=== PATIENT | female | born 1940 | race Caucasian/White ===

== ENCOUNTER 2018-06-08 11:17 | Emergency (ER) | payer MEDICARE, OTHER ==
[~2018-06-08] VITALS: Ht 157.5 cm; Wt 47.0 kg
[2018-06-08 11:51] VITALS: BP 138/81
== END 2018-06-08 13:48 | disposition home or self-care (01) ==
LOC: ER 11:17
DX: S00.03XA Contusion of scalp, initial encounter (principal); S00.12XA Contusion of left eyelid and periocular area, initial encounter; S00.11XA Contusion of right eyelid and periocular area, initial encounter; S00.83XA Contusion of other part of head, initial encounter; S00.33XA Contusion of nose, initial encounter; Z88.0 Allergy status to penicillin; Z88.8 Allergy status to other drugs, medicaments and biological substances; W18.39XA Other fall on same level, initial encounter; Y93.01 Activity, walking, marching and hiking; Y92.89 Other specified places as the place of occurrence of the external cause; Y99.8 Other external cause status
CPT/HCPCS: 70450; 70486; 99284

== ENCOUNTER 2018-12-28 05:49 | Inpatient (IN) | payer MEDICARE, BC ==
[2018-12-24 15:50] LABS: CLARITY,URINE CLOUDY (Clear); COLOR,URINE YELLOW (Yellow); GLUCOSE, URINE NEGATIVE (Neg); KETONES,URINE NEGATIVE (Neg); LEUKOCYTE ESTERASE ,URINE SMALL (Neg); NITRITES, URINE NEGATIVE (Neg); OCCULT BLOOD,URINE SMALL (Neg); PH,URINE 5.5 (4.8-8.0); PROTEIN,URINE NEGATIVE (Neg); UROBILINOGEN,URINE 0.2 E.U/dL (0.2-1.0)
[2018-12-24 15:53] LABS: BASOPHILS # (AUTO) 0.1 X10'3 (0-0.2); BASOPHILS % (AUTO) 0.9 % (0-1); EOSINOPHILS # (AUTO) 0.3 X10'3 (0-0.9); EOSINOPHILS % (AUTO) 2.7 % (0-6); LYMPHOCYTES # (AUTO) 2.3 X10'3 (1.1-4.8); LYMPHOCYTES % (AUTO) 23.2 % (21-51); MEAN CORPUSCULAR HEMOGLOBIN 32.6 PG (27.0-31.0); MEAN CORPUSCULAR HGB CONC 35.1 g/dL (33.0-36.5); MONOCYTES # (AUTO) 0.6 X10'3 (0-0.9); MONOCYTES % (AUTO) 6.4 % (2-12); NEUTROPHILS # (AUTO) 6.7 X10'3 (1.8-7.7); NEUTROPHILS % (AUTO) 66.8 % (42-75); PRE OP HEMATOCRIT 41.8 % (35.0-45.0); PRE OP HEMOGLOBIN 14.7 g/dL (12.0-16.0); PRE OP PLATELET COUNT 215 X10'3 (140-440); RED BLOOD COUNT 4.49 X10'6 (4.20-5.60); RED CELL DISTRIBUTION WIDTH 12.7 % (11.5-14.5)
[2018-12-24 16:03] LABS: PRE OP PROTIME 10.3 SECONDS (9.0-12.0)
[2018-12-24 16:08] LABS: UA COLLECTION TYPE CLN CATCH MIDSTREAM
[2018-12-24 16:10] LABS: ALBUMIN 3.4 G/DL (3.4-5.0); ALKALINE PHOSPHATASE 103 IU/L (46-116); BLOOD UREA NITROGEN 19 MG/DL (7-18); BUN/CREATININE RATIO 29.7 (6.6-38.0); CALCIUM 8.4 MG/DL (8.5-10.1); CHLORIDE 109 MMOL/L (99-107); CREATININE 0.64 MG/DL (0.40-0.90); PRE OP ALT 25 U/L (30-65); PRE OP ANION GAP 8 (8-16); PRE OP AST 18 U/L (10-37); PRE OP BILIRUB, TOTAL 0.7 MG/DL (0.0-1.0); PRE OP GLUCOSE 84 MG/DL (70-104); PRE OP POTASSIUM 3.9 MMOL/L (3.4-5.1); PRE OP SODIUM 142 MMOL/L (135-145); TOTAL CARBON DIOXIDE 25.2 MMOL/L (24-32); TOTAL PROTEIN 6.7 G/DL (6.4-8.2); eGFR 90 ML/MIN
[2018-12-24 16:20] LABS: SQUAMOUS EPITHELIAL CELL,UR MANY /LPF (FEW)
[2018-12-24 16:22] LABS: BACTERIA,URINE 1+ /HPF (Neg); WBC,URINE 0-4 /HPF (0-4)
[2018-12-24 16:24] LABS: MUCUS STRANDS NONE SEEN /LPF (Neg)
[2018-12-24 16:26] LABS: RBC,URINE 0-2 /HPF (0-2)
[2018-12-24 16:28] LABS: TRANSITIONAL EPI CELLS,URINE FEW /HPF
[2018-12-28] VITALS (18 sets, daily range): BP systolic 118–153; BP diastolic 55–81
[~2018-12-28] VITALS: Ht 157.5 cm; Wt 56.8 kg
[~2018-12-28 05:49] MED LIST: HORMONE CREAM VG; clindamycin-Cleocin 900mg/D5W 50 ML IV ONE; famotidine 20mg tablet PO ONE; gentamicin inj 250 MG in normal saline 100ml IV soln 93.75 ML IV ONE; ringers solution, lacted 1,000 ML IV SCH
[2018-12-28] MEDS ORDERED: LIDOcaine 1% (10mg/ml) 2ml vial ONE (06:17)
[2018-12-28] MEDS ORDERED: ceFOXitin sod/dextrose 2g/50ml 50 ML IV ONE (06:35)
[2018-12-28] MEDS ORDERED: ceFAZolin 1000mg inj ONE (06:38)
[2018-12-28] MEDS ORDERED: clindamycin phosphate 40gm vag cream ONE (06:38)
[2018-12-28] MEDS ORDERED: morphine 10mg/ml inj. ONE (06:38)
[2018-12-28] MEDS ORDERED: BUPIVAcaine/PF 2.5mg/ml (0.25%) 10ml vial ONE (06:39)
[2018-12-28] MEDS ORDERED: LIDOcaine 1% 30ml preserv. free vial ONE (06:39)
[2018-12-28] MEDS ORDERED: vasoPRESSIN 20 units/ml inj. ONE (06:40)
[2018-12-28] MEDS ORDERED: BUPIVAcaine/PF 2.5 mg/ml (0.25%) 30ml vial ONE (06:45)
[2018-12-28] MEDS ORDERED: ringers solution, lacted 1,000 ML IV SCH (08:06)
[2018-12-28] MEDS ORDERED: morphine 4 MG/ML inj SYRINge IV PRN ×2 (08:10)
[2018-12-28] MEDS ORDERED: hydrALAZINE 20mg/ml inj. IV PRN (08:10)
[2018-12-28] MEDS ORDERED: fentaNYL/PF 50MCG/1 ML 2ML syringe IV PRN ×2 (08:10)
[2018-12-28] MEDS ORDERED: ondansetron/PF 4mg/2ml inj IV PRN ×2 (08:10→10:50)
[2018-12-28] MEDS ORDERED: fentaNYL/PF 50MCG/1 ML 2ML syringe ONE (08:12)
[2018-12-28] MEDS ORDERED: midazolam 2 mg/2 ml injection ONE (08:13)
[2018-12-28] MEDS ORDERED: sevoflurane 250ml liquid IH ONE (08:13)
[2018-12-28] MEDS ORDERED: LIDOcaine 2% (20mg/ml) 5ml vial ONE (08:14)
[2018-12-28] MEDS ORDERED: ondansetron/PF 4mg/2ml inj ONE (08:14)
[2018-12-28] MEDS ORDERED: neostigmine methylsulfate 1 MG/ML 10ml vial ONE (08:14)
[2018-12-28] MEDS ORDERED: rocuronium 10mg/ml inj IV ONE (08:14)
[2018-12-28] MEDS ORDERED: dexamethasone sod phosphate 4mg/ml inj. ONE (08:14)
[2018-12-28] MEDS ORDERED: glycopyrrolate 0.2mg/ml inj ONE (08:14)
[2018-12-28] MEDS ORDERED: propofol inj 20 ML IV ONE (08:14)
[2018-12-28] MEDS ORDERED: labetalol 20mg/4ml (5mg/ml) syringe IV ONE (09:14)
[2018-12-28] MEDS ORDERED: CADD PCA waste documentation MC PRN (10:50)
[2018-12-28] MEDS ORDERED: normal saline 500ml IV soln 500 ML IV PRN (10:50)
[2018-12-28] MEDS ORDERED: HYDROcodone/acetaminophen 5mg/325mg tablet PO PRN ×2 (10:50)
[2018-12-28] MEDS ORDERED: temazepam 15mg capsule PO PRN (10:50)
[2018-12-28] MEDS ORDERED: diphenhydrAMINE 50 mg/ml inj IV PRN (10:50)
[2018-12-28] MEDS ORDERED: magnesium hydroxide 30ml (MOM) UD suspension PO PRN (10:50)
[2018-12-28] MEDS ORDERED: naloxone 0.4 mg/ml inj IV PRN (10:50)
--- NOTE | 2018-12-28 10:55 | NUR ---
ADMITTED TO PACU FROM OR ACCOMPANIED BY ANESTHESIA. INTIAL PHYSICAL ASSESSMENT DONE AND RECORDED. AWAKE AND RESPONSE ON ARRIVE YO PACU, REPORT RECEIVED FROM ANESTHESIA.
[2018-12-28] MEDS: HYDROmorphone/NS 1 mg/ml CADD 50 ML IV SCH ×7 (11:23→23:00)
--- NOTE | 2018-12-28 11:40 | NUR ---
Report received from [facility]PRENTICE DISPENSINGAnabel.
[2018-12-28] MEDS: ringers solution, lacted 1,000 ML IV SCH ×2 (12:00→15:44)
--- NOTE | 2018-12-28 12:00 | NUR ---
PACU DISCHARGE CRITERIA MET, REPORT GIVEN TO FLOOR. DENIES PAIN OR DISCOMFORT, TRANSFERRED TO ROOM IN STABLE GOOD CONDITION.
--- NOTE | 2018-12-28 12:00 | NUR ---
Pt arrived to room 345B from PACU.
[2018-12-28] MEDS: simethicone 80mg chew tab PO SCH ×2 (13:27→18:20)
--- NOTE | 2018-12-28 18:35 | NUR ---
Problems reprioritized. Patient report given, questions answered & plan of care reviewed with DAYLIN Cárdenas.
[2018-12-28] MEDS: ketorolac tromethamine 15mg/ml inj. IV PRN (19:03)
--- NOTE | 2018-12-28 20:00 | NUR ---
Dr Shafer called to check up on pt and aware she was too sleepy earlier to ambulate. aware she has not used Dilaudid since back on floor and c/o back pain of 3/10 and Toradol given for this. he had me relay message to her and he is aware we will get her up to ambulate tonight.
[2018-12-28] MEDS: docusate sod 100mg capsule PO SCH (20:45)
--- NOTE | 2018-12-28 22:00 | NUR ---
pt up with Rn ambulating in the malagon tolerated well.
[2018-12-29] VITALS: BP 112/51
--- NOTE | 2018-12-29 00:04 | NUR ---
pt resting eyes closed without changes.
[2018-12-29] MEDS: HYDROmorphone/NS 1 mg/ml CADD 50 ML IV SCH ×5 (01:00→09:00)
--- NOTE | 2018-12-29 01:10 | NUR ---
pt awoke used cadd for pain mixed it up per her words with the call light and c/o headache with abd pain discomfort. medicated with Iv toradol for this and given ice chips for c/o slight dry sore throat and water. pt requested cadd button be moved to Iv pole. lap sites dry and scant drainage on peripad. pt c/o feet being hot and socks and scd's removed. Is unit given to pt with teaching.
[2018-12-29] MEDS: ketorolac tromethamine 15mg/ml inj. IV PRN ×2 (01:20→14:23)
[2018-12-29] MEDS: ringers solution, lacted 1,000 ML IV SCH ×3 (02:49→13:58)
--- NOTE | 2018-12-29 03:00 | NUR ---
resting eyes closed without s&s of distress at this time.
--- NOTE | 2018-12-29 05:00 | NUR ---
pt ambulated in the malagon tolerated well. then back to bed. used diladid for pain on cadd became nauseated and informed. 0530 this was completed then medicated for the nausea.
[2018-12-29 05:15] LABS: BASOPHILS % (AUTO) 0.1 % (0-1); EOSINOPHILS % (AUTO) 0.1 % (0-6); HEMATOCRIT 34.6 % (35.0-45.0); HEMOGLOBIN 12.2 g/dl (12.0-16.0); LYMPHOCYTES # (AUTO) 1.6 X10'3 (1.1-4.8); LYMPHOCYTES % (AUTO) 9.6 % (21-51); MEAN CORPUSCULAR HEMOGLOBIN 32.7 PG (27.0-31.0); MEAN CORPUSCULAR HGB CONC 35.3 g/dL (33.0-36.5); MEAN CORPUSCULAR VOLUME 92.6 FL (78-98); MONOCYTES # (AUTO) 0.9 X10'3 (0-0.9); MONOCYTES % (AUTO) 5.2 % (2-12); PLATELET COUNT 175 X10'3 (140-440); RED BLOOD COUNT 3.74 X10'6 (4.20-5.60); RED CELL DISTRIBUTION WIDTH 12.4 % (11.5-14.5); WHITE BLOOD COUNT 16.5 X10'3 (4.5-11.0)
--- NOTE | 2018-12-29 05:35 | NUR ---
teaching done and packing removed without difficultypt tolerated well and balloen deflated to the kaye and removed with deflated balloon intact. peripad put in place with mesh pants aware she needs to call Rn after voiding for bladder scanning. pt using Is unit well to 1000.
--- NOTE | 2018-12-29 06:48 | NUR ---
Patient in room [facility]. I have received report from DAYLIN Cárdenas and had the opportunity to ask questions and assume patient care.
--- NOTE | 2018-12-29 06:52 | NUR ---
Problems reprioritized. Patient report given, questions answered & plan of care reviewed with Kristy Trotter. she is aware Bae and packing out by 0545 this am and pt medicated for nausea with Zofran. pt when introducing her to Kristy stated nausea went away and came back. given alcohol swab to wiff. pt plans to hold off on using Dilaudid for the pain due to it and is aware can have more Toradol iv after 7am. Kristy is aware as well.. Addendum: 12/29/18 at 0656 by Melia Ignacio RN Amended: Links added.
--- NOTE | 2018-12-29 07:00 | NUR ---
Patients' CADD values are not correct. Whoever started the CADD did not clear the MG given. It showed that she had 11.6mg given, but the patent only got 3 doses and 5 attempted. At 0.2 demand that is not possible.
[2018-12-29 07:15] VITALS: BP 133/70
[2018-12-29] MEDS: simethicone 80mg chew tab PO SCH ×3 (08:06→18:50)
[2018-12-29] MEDS: docusate sod 100mg capsule PO SCH (08:06)
[2018-12-29 11:00] VITALS: BP 142/69
--- NOTE | 2018-12-29 16:00 | NUR ---
Called Dr. Shafer regarding the patient's inability to void. I told him that she had 371 in her bladder and had ambulated 3 times but hadn't voided. I wanted to get his opinion because she didn't have greater than 400 so I couldn't use the standard order to place the kaye. He was okay with the kaye. I also asked him if she could have HH because she didn't feel comfortable and he said that was also okay.
--- NOTE | 2018-12-29 17:04 | NUR ---
FC placed at 1650, pt tolerated well. C/O mild burning immediately after insertion, but states that after a few minutes the sensation subsided.
[2018-12-29 18:00] VITALS: BP 140/56
--- NOTE | 2018-12-29 18:27 | NUR ---
Problems reprioritized. Patient report given, questions answered & plan of care reviewed with DAYLIN Stoddard. Partial report given loi patient is being discharged shortly.
--- NOTE | 2018-12-29 18:30 | NUR ---
Patient in room [facility]. I have received report from DAYLIN Yanez and had the opportunity to ask questions and assume patient care.
--- NOTE | 2018-12-29 19:00 | NUR ---
I agree with DAYLIN Yanez's assessment of pt.
--- NOTE | 2018-12-29 19:19 | NUR ---
Patient was educated on how to empty her kaye bag and she actually performed this by herself before discharge. Patients IV was taken out and was discharged via wheelchair.
== END 2018-12-29 19:20 | disposition home health service (06) | DRG 664 ==
LOC: PAS 05:49 → SUR 3N 13:25
PROVIDERS: ADMIT Specialist; ATTEND Specialist
PROC: 0USG4ZZ Reposition Vagina, Percutaneous Endoscopic Approach (ICD-10-PCS; 2018-12-28)
PROC: 0UT9FZZ Resection of Uterus, Via Natural or Artificial Opening With Percutaneous Endoscopic Assistance (ICD-10-PCS; 2018-12-28)
PROC: 0UT7FZZ Resection of Bilateral Fallopian Tubes, Via Natural or Artificial Opening With Percutaneous Endoscopic Assistance (ICD-10-PCS; 2018-12-28)
PROC: 0DNW4ZZ Release Peritoneum, Percutaneous Endoscopic Approach (ICD-10-PCS; 2018-12-28)
PROC: 0DNN4ZZ Release Sigmoid Colon, Percutaneous Endoscopic Approach (ICD-10-PCS; 2018-12-28)
PROC: 0DN84ZZ Release Small Intestine, Percutaneous Endoscopic Approach (ICD-10-PCS; 2018-12-28)
PROC: 0US Female Reproductive System, Reposition (ICD-10-PCS; 2018-12-28)
PROC: 0UQF4ZZ Repair Cul-de-sac, Percutaneous Endoscopic Approach (ICD-10-PCS; 2018-12-28)
PROC: 0TSD4ZZ Reposition Urethra, Percutaneous Endoscopic Approach (ICD-10-PCS; 2018-12-28)
PROC: 0UJH4ZZ Inspection of Vagina and Cul-de-sac, Percutaneous Endoscopic Approach (ICD-10-PCS; 2018-12-28)
PROC: 0JQC3ZZ Repair Pelvic Region Subcutaneous Tissue and Fascia, Percutaneous Approach (ICD-10-PCS; 2018-12-28)
PROC: 0TJB8ZZ Inspection of Bladder, Via Natural or Artificial Opening Endoscopic (ICD-10-PCS; 2018-12-28)
PROC: 0TJB8ZZ Inspection of Bladder, Via Natural or Artificial Opening Endoscopic (ICD-10-PCS; 2018-12-28)
PROC: 0DNW4ZZ Release Peritoneum, Percutaneous Endoscopic Approach (ICD-10-PCS; principal; 2018-12-28 08:13)
DX: N36.42 Intrinsic sphincter deficiency (ISD) (principal); N73.6 Female pelvic peritoneal adhesions (postinfective); N81.11 Cystocele, midline; N81.5 Vaginal enterocele; N95.2 Postmenopausal atrophic vaginitis; N39.3 Stress incontinence (female) (male); Z88.8 Allergy status to other drugs, medicaments and biological substances; Z87.891 Personal history of nicotine dependence; Z82.49 Family history of ischemic heart disease and other diseases of the circulatory system; Z83.3 Family history of diabetes mellitus; Z82.3 Family history of stroke
CPT/HCPCS: 36415; 80053; 81001; 82948; 85025; 85610; 85730; 88302; 88307; 88311; A4215; A4314; A4338; A4355; A4618; A6250; A7000; C1771; G0378; J0690; J0694; J1100; J1170; J1580; J1885; J2001; J2250; J2270; J2405; J2704; J2710; J3010; J3490; J7120